=== PATIENT | female | born 1980 | race Caucasian/White ===

== ENCOUNTER 2019-04-26 14:37 | Emergency (ER) | payer OTHER ==
[2019-04-26] MEDS: ONDANSETRON 4 MG INJ IV (14:49)
[2019-04-26] MEDS: SOD CHLORIDE 0.9% 100 ML (14:55)
[2019-04-26] MEDS: IODIXANOL LOCM 100 ML BTL (14:55)
[2019-04-26 15:29] LABS: ADD MAN DIFF? NO
[2019-04-26] MEDS: FOSPHENYTOIN 100 MG PE/2ML INJ IV (15:30)
[2019-04-26 15:32] LABS: WHITE BLOOD COUNT 12.3 10^3/ul (4.8-10.8)
[2019-04-26 15:33] LABS: BASOPHILS % 0.2 % (0.0-2.0); EOSINOPHILS % 0.3 % (0.0-7.0); HEMATOCRIT 39.8 % (37.0-47.0); HEMOGLOBIN 12.7 g/dl (12.0-16.0); LYMPHOCYTES # 2.4 10^3/ul (0.8-2.9); LYMPHOCYTES % 19.5 % (15.0-51.0); MEAN CORPUSCULAR HEMOGLOBIN 29.1 pg (29.0-33.0); MEAN CORPUSCULAR HGB CONC 31.9 g/dl (32.0-37.0); MEAN CORPUSCULAR VOLUME 91.3 fl (82.0-101.0); MEAN PLATELET VOLUME 10.5 fl (7.4-10.4); MONOCYTE # 0.9 10^3/ul (0.3-0.9); NEUTROPHILS % 72.5 % (39.0-77.0); PLATELET COUNT 239 10^3/UL (140-415); RED BLOOD COUNT 4.36 10^6/ul (4.20-5.40); RED CELL DISTRIBUTION WIDTH 13.1 % (11.5-14.5)
[2019-04-26 15:50] LABS: ANION GAP 11 (5-13); BLOOD UREA NITROGEN 11 mg/dl (7-20); CALCIUM 8.9 mg/dl (8.4-10.2); CARBON DIOXIDE 26 mmol/L (21-31); CHLORIDE 101 mmol/L (97-110); CHOL/HDL RATIO 7.3 RATIO; CHOLESTEROL 177 mg/dl (100-200); CREATINE KINASE 31 IU/L (23-200); CREATININE 0.61 mg/dl (0.44-1.00); Estimated GFR > 60 mL/min (>60); GLUCOSE 134 mg/dl (70-220); HDL CHOLESTEROL 24 mg/dl (34-88); LDL CHOLESTEROL,CALCULATED 101 mg/dl; POTASSIUM 3.7 mmol/L (3.5-5.1); SODIUM 138 mmol/L (135-144); TRIGLYCERIDES 262 mg/dl (0-149)
[2019-04-26 15:52] LABS: INR 0.89; PARTIAL THROMBOPLASTIN TIME 20.1 Sec (23.0-35.0); PROTIME 12.2 Sec (11.9-14.9)
[2019-04-26] MEDS: LEVETIRACETAM 1000 MG (PMX) 100 ML IVPB ×2 (16:01)
[2019-04-26 16:02] LABS: CK INDEX 0.7; CK-MB < 0.22 ng/ml (0.0-2.4); TROPONIN-I < 0.012 ng/ml (0.000-0.120)
[2019-04-26 16:04] LABS: HEMOGLOBIN A1C 5.4 % (0-5.9)
[2019-04-26 16:05] LABS: ETHANOL < 10.0 mg/dl (0-0)
[2019-04-26] MEDS: SOD CHLORIDE 0.9% IV (16:36)
[2019-04-26] MEDS: PHENYTOIN IV (16:36)
[2019-04-26 16:38] LABS: ADD UMIC YES; UR ASCORBIC ACID NEGATIVE (NEGATIVE); UR BILIRUBIN (Dip) NEGATIVE (NEGATIVE); UR BLOOD (Dip) NEGATIVE (NEGATIVE); UR CLARITY CLEAR (CLEAR); UR COLOR BLUE (YELLOW); UR GLUCOSE (Dip) NEGATIVE (NEGATIVE); UR KETONES (Dip) NEGATIVE (NEGATIVE); UR LEUKOCYTE ESTERASE (Dip) NEGATIVE Leu/ul (NEGATIVE); UR MUCUS FEW /HPF (NONE SEEN); UR NITRITE (Dip) NEGATIVE (NEGATIVE); UR RBC 4 /HPF (0-5); UR SPECIFIC GRAVITY (Dip) > 1.060 (1.003-1.030); UR TOTAL PROTEIN (Dip) 1+ mg/dl (NEGATIVE); UR UROBILINOGEN (Dip) NEGATIVE (NEGATIVE); UR WBC 0 /HPF (0-5)
[2019-04-26 16:45] LABS: AMPHETAMINE/METHAMPHETAMINE Negative (NEGATIVE); BARBITURATES Negative (NEGATIVE); BENZODIAZEPINES Negative (NEGATIVE); CANNABINOIDS Negative (NEGATIVE); COCAINE Negative (NEGATIVE); OPIATES Negative (NEGATIVE)
[2019-04-26] MEDS: DIPHTH/TET/ACEL PERTUSS (ADULT) 0.5 ML VIAL IM* (18:01)
[2019-04-26] MEDS ORDERED: LIDOCAINE 1%/EPI (MDV) 50 ML INJ INJ (18:30)
[2019-04-26] MEDS: LIDOCAINE 1%/EPI 30 ML INJ INJ (19:19)
== END 2019-04-26 19:54 | disposition short-term general hospital (02) ==
LOC: E/R 14:37
DX: G93.40 Encephalopathy, unspecified (principal); E11.9 Type 2 diabetes mellitus without complications; R55 Syncope and collapse
CPT/HCPCS: 36415; 70450; 70496; 70498; 70551; 71045; 80048; 80061; 80307; 81001; 81025; 82550; 82553; 82962; 83036; 84484; 85025; 85610; 85730; 90471; 90715; 93005; 95819; 96365; 96366; 96368; 99285-25